=== PATIENT | male | born 1950 | race Caucasian/White ===

== ENCOUNTER 2017-09-16 07:41 | Emergency (ER) | payer MEDICARE, BC ==
--- NOTE | 2017-09-16 08:28 | EDM.PDOC ---
ED HPI GENERAL MEDICAL PROBLEM - General Chief Complaint: Genitourinary Problem Stated Complaint: BACK PAIN/PAINFUL URINATION Time Seen by Provider: 09/16/17 08:06 Source of Information: Reports: Patient, RN Notes Reviewed - History of Present Illness INITIAL COMMENTS - FREE TEXT/NARRATIVE: 67-year-old male comes in with voiding dysuria the first started about 3 days ago. He has had this occasion in the past but usually that will clear up within a day or so. The voiding dysuria has continued. Therefore he felt he should come in, get this checked out. No visible hematuria. No fever or chills. He did feel somewhat nauseated a few days ago but that now is better. He states he did not drink much water that day but now is been drinking what he feels is adequate water intake the past 2 days. No major abdominal pain. No chest pain or difficulty breathing. Bilateral Flank Pain Score (Numeric/FACES): 5 - Related Data Allergies Allergy/AdvReac Type Severity Reaction Status Date / Time No Known Allergies Allergy Verified 09/16/17 07:56 Home Meds: Home Meds Aspirin [Ecotrin] 81 mg PO DAILY 09/16/17 [History] Cholecalciferol (Vitamin D3) [Vitamin D3] 5,000 unit PO DAILY 09/16/17 [History] Clopidogrel [Plavix] 75 mg PO DAILY 09/16/17 [History] Cyanocobalamin/Folic Acid [Vitamin P50-Creno Acid] 400 mg PO DAILY 09/16/17 [ History] Isosorbide Mononitrate [Imdur] 30 mg PO BID 09/16/17 [History] Levofloxacin [Levaquin] 500 mg PO DAILY #7 tab 09/16/17 [Rx] Lisinopril 10 mg PO DAILY 09/16/17 [History] Metoprolol Tartrate 25 mg PO BID 09/16/17 [History] Nitroglycerin [Nitrostat] 0.4 mg PO ASDIRECTED PRN 09/16/17 [History] [place]-3/DHA/Epa/Fish Oil [[place]-3 Fish Oil 1,000 MG Sfgl] 1,000 mg PO DAILY 11/28 [History] Rosuvastatin [Crestor] 20 mg PO DAILY 09/16/17 [History] Ubidecarenone [Co Q-10] 300 mg PO DAILY 09/16/17 [History] Past Medical History HEENT History: Reports: Impaired Vision Other HEENT History: wears eyeglasses. Cardiovascular History: Reports: Bypass, High Cholesterol, Hypertension, ID, Stents Other Cardiovascular History: 3 vessel CABG Dermatologic History: Reports: Psoriasis - Infectious Disease History Infectious Disease History: Reports: Chicken Pox, Measles - Past Surgical History Cardiovascular Surgical History: Reports: Coronary Artery Bypass, Coronary Artery Stent Social & Family History - Tobacco Use Smoking Status *Q: Never Smoker Second Hand Smoke Exposure: No - Caffeine Use Caffeine Use: Reports: Coffee - Recreational Drug Use Recreational Drug Use: No ED ROS GENERAL - Review of Systems Review Of Systems: See Below Constitutional: Denies: Fever, Chills, Diaphoresis HEENT: Denies: Throat Pain Respiratory: Denies: Shortness of Breath Cardiovascular: Denies: Chest Pain GI/Abdominal: Reports: Nausea. Denies: Abdominal Pain, Diarrhea, Vomiting (3 days ago) : Reports: Dysuria. Denies: Hematuria Musculoskeletal: Reports: Back Pain (Low back discomfort the last several days) Skin: Reports: No Symptoms Neurological: Reports: No Symptoms ED EXAM, GI/ABD - Physical Exam Exam: See Below General Appearance: Alert, No Apparent Distress Throat/Mouth: Normal Inspection Head: No: Facial Swelling Neck: Supple, Full Range of Motion Respiratory/Chest: No Respiratory Distress, Lungs Clear, Normal Breath Sounds Cardiovascular: Tachycardia GI/Abdominal Exam: Soft, Non-Tender Back Exam: No: CVA Tenderness (L), CVA Tenderness (R), Paraspinal Tenderness, Vertebral Tenderness Extremities: Normal Inspection, Normal Range of Motion Neurological: Alert, Oriented, No Motor/Sensory Deficits Skin Exam: Warm, Dry, Normal Color Course - Vital Signs Last Recorded V/S: Last Vital Signs Temp 97.8 F 09/16/17 07:45 Pulse 109 H 09/16/17 07:45 Resp 16 09/16/17 07:45 BP 124/72 09/16/17 07:45 Pulse Ox 100 09/16/17 07:45 - Orders/Labs/Meds Orders: Active Orders 24 hr Category Date Time Status Peripheral IV Care [RC] . DIRECTED Care 09/16/17 09:17 Active CULTURE URINE [RM] Stat Lab 09/16/17 07:55 Received Sodium Chloride 0.9% [Saline Flush] Med 09/16/17 09:17 Active 10 ml FLUSH ASDIRECTED PRN Peripheral IV Insertion Adult [OM.PC] Stat Oth 09/16/17 09:17 Ordered Medication Orders Sodium Chloride (Saline Flush) 10 ml FLUSH ASDIRECTED PRN PRN Reason: Keep Vein Open Last Admin: 09/16/17 09:39 Dose: 10 ml Labs: Laboratory Tests 09/16/17 Range/Units 07:55 Urine Color Yellow (Yellow) Urine Appearance Slt cloudy H (Clear) Urine pH 6.0 (5.0-8.0) Ur Specific [place] > or = 1.030 (1.005-1.030) Urine Protein 2+ H (Negative) Urine Glucose (UA) Negative (Negative) Urine Ketones 1+ H (Negative) Urine Occult Blood 2+ H (Negative) Urine Nitrite Positive H (Negative) Urine Bilirubin Negative (Negative) Urine Urobilinogen 2.0 H (0.2-1.0) Ur Leukocyte Esterase Trace H (Negative) Urine RBC 10-20 H (0-5) /hpf Urine WBC 20-30 H (0-5) /hpf Ur Epithelial Cells 0-5 (0-5) /hpf Urine Bacteria Many H (FEW) /hpf Urine Mucus Many H (FEW) /hpf Meds: Medications Generic Name Dose Route Start Last Admin Trade Name Freq PRN Reason Stop Dose Admin Sodium Chloride 10 ml 09/16/17 09:17 09/16/17 09:39 Saline Flush FLUSH 10 ml ASDIRECTED PRN Administration Keep Vein Open Discontinued Medications Generic Name Dose Route Start Last Admin Trade Name Freq PRN Reason Stop Dose Admin Ceftriaxone Sodium 1 gm/ 100 mls @ 200 mls/hr 09/16/17 09:17 09/16/17 09:28 Sodium Chloride IV 09/16/17 09:46 200 mls/hr ONETIME ONE Administration Sodium Chloride 500 mls @ 999 mls/hr 09/16/17 09:17 09/16/17 09:27 Normal Saline IV 09/16/17 09:47 999 mls/hr .BOLUS ONE Administration Levofloxacin 500 mg 09/16/17 10:42 Levaquin PO 09/16/17 10:43 ONETIME ONE Departure - Departure Time of Disposition: 10:53 Disposition: Home, Self-Care 01 Condition: Fair Clinical Impression: UTI, Urinary tract infectious disease - Discharge Information Referrals: Keyur Long MD [Primary Care Provider] - Forms: ED Department Discharge Additional Instructions: Drink plenty of water to maintain hydration, you've been given Rocephin 1 g IV while here in the ED, Levaquin 500 milligrams daily to take with food as soon as you get home. Prescription for another 7 days has been sent to [facility]. Continue that once daily until gone. See Dr. Richi Chaney in 2-3 days for follow-up. Urine culture has been done. Urine culture results should be available in about 48 hours. Return to ED if symptoms worsening in any way. - My Orders Last 24 Hours: My Active Orders 09/16/17 07:55 CULTURE URINE [RM] Stat 09/16/17 09:17 Peripheral IV Care [RC] . DIRECTED Sodium Chloride 0.9% [Saline Flush] 10 ml FLUSH ASDIRECTED PRN Peripheral IV Insertion Adult [OM.PC] Stat - Assessment/Plan Last 24 Hours: My Active Orders 09/16/17 07:55 CULTURE URINE [RM] Stat 09/16/17 09:17 Peripheral IV Care [RC] . DIRECTED Sodium Chloride 0.9% [Saline Flush] 10 ml FLUSH ASDIRECTED PRN Peripheral IV Insertion Adult [OM.PC] Stat
[2017-09-16] MEDS ORDERED: Sodium Chloride 0.9% 500 ML IV ONE (09:17)
[2017-09-16] MEDS ORDERED: cefTRIAXone 1 GM in Sodium Chloride 0.9% 100 ML IV ONE (09:17)
[2017-09-16] MEDS ORDERED: Sodium Chloride 0.9% 10 ML Syringe FLUSH PRN (09:17)
[2017-09-16] MEDS ORDERED: Levofloxacin 250 MG Tab PO ONE ×2 (10:42→10:53)
== END 2017-09-16 11:49 | disposition home or self-care (01) ==
LOC: JD.ED 07:41
DX: N39.0 Urinary tract infection, site not specified (principal); B96.20 Unspecified Escherichia coli [E. coli] as the cause of diseases classified elsewhere; E78.00 Pure hypercholesterolemia, unspecified; I10 Essential (primary) hypertension; I25.2 Old myocardial infarction; Z79.82 Long term (current) use of aspirin; Z79.899 Other long term (current) drug therapy
CPT/HCPCS: 81001; 87086; 87088; 87186; 96361; 96365; 99283; A9270; J0696; J7030; J7040; J7050; 99284

== ENCOUNTER 2018-05-18 08:59 | Emergency (ER) | payer MEDICARE, BC ==
[2018-05-18] MEDS ORDERED: Amoxicillin/Clavulanate K 875-125 MG Tab PO ONE (09:48)
[2018-05-18] MEDS ORDERED: Diphtheria,Pertussis(Acell),Tetanus Vaccine 0.5 ML SDV IM ONE (09:49)
--- NOTE | 2018-05-18 09:55 | EDM.PDOC ---
ED HPI GENERAL MEDICAL PROBLEM - General Chief Complaint: Bite:Animal, Insect Stated Complaint: DOG BITE Time Seen by Provider: 05/18/18 09:09 Source of Information: Reports: Patient, RN Notes Reviewed History Limitations: Reports: No Limitations - History of Present Illness INITIAL COMMENTS - FREE TEXT/NARRATIVE: The patient states that he was attacked by 2 of his neighbors [place] dogs around 8:30 this morning, while he was walking to his garage. The patient was bitten on his left anterior thigh and right distal anterior leg. The patient states that he is otherwise uninjured. LLUSTRE animal Leotus, who is here with the patient, states that the dog's vaccinations are up-to-date. The patient is not sure if his own tetanus vaccination is up-to-date. The patient's PCP is Dr. Long. His German Professor is Dr. Delgado, in [place]. Left Leg Pain Score (Numeric/FACES): 4 - Related Data Allergies Allergy/AdvReac Type Severity Reaction Status Date / Time No Known Allergies Allergy Verified 05/18/18 09:05 Home Meds: Home Meds Aspirin [Ecotrin] 81 mg PO DAILY 09/16/17 [History] Cholecalciferol (Vitamin D3) [Vitamin D3] 5,000 unit PO DAILY 09/16/17 [History] Clopidogrel [Plavix] 75 mg PO DAILY 09/16/17 [History] Cyanocobalamin/Folic Acid [Vitamin C80-Gkvme Acid] 400 mg PO DAILY 09/16/17 [ History] Isosorbide Mononitrate [Imdur] 30 mg PO BID 09/16/17 [History] Lisinopril 10 mg PO DAILY 09/16/17 [History] Metoprolol Tartrate 25 mg PO BID 09/16/17 [History] Nitroglycerin [Nitrostat] 0.4 mg PO ASDIRECTED PRN 09/16/17 [History] [place]-3/DHA/Epa/Fish Oil [[place]-3 Fish Oil 1,000 MG Sfgl] 1,000 mg PO DAILY 11/28 [History] Rosuvastatin [Crestor] 20 mg PO DAILY 09/16/17 [History] Ubidecarenone [Co Q-10] 300 mg PO DAILY 09/16/17 [History] levoFLOXacin [Levaquin] 500 mg PO DAILY #7 tab 09/16/17 [Rx] Amoxicillin/Potassium Clav [Augmentin 875-125 Tablet] 1 tab PO Q12H #14 tablet 05/18/18 [Rx] Past Medical History HEENT History: Reports: Allergic Rhinitis, Impaired Vision Other HEENT History: wears eyeglasses. Cardiovascular History: Reports: CAD, High Cholesterol, Hypertension, ID (2011) - Infectious Disease History Infectious Disease History: Reports: Chicken Pox, Measles - Past Surgical History Cardiovascular Surgical History: Reports: Coronary Artery Bypass (x 3 vessel, 2011), Coronary Artery Stent (x 2) Social & Family History - Tobacco Use Smoking Status *Q: Never Smoker - Caffeine Use Caffeine Use: Reports: Coffee - Alcohol Use Alcohol Use History: Yes Days Per Week of Alcohol Use: 3 Number of Drinks Per Day: 2 Total Drinks Per Week: 6 Alcohol Use Frequency: Socially - Recreational Drug Use Recreational Drug Use: No - Living Situation & Occupation Living situation: Reports: , with Spouse Occupation: Retired ED ROS GENERAL - Review of Systems Review Of Systems: ROS reveals no pertinent complaints other than HPI. ED EXAM, ANIMAL BITE - Physical Exam Exam: See Below Exam Limited By: No Limitations General Appearance: Alert, WD/WN, No Apparent Distress Extremities: Other (There is a puncture wound with minimal skin tear to the mid- anterior left thigh, with associated hematoma, ecchymosis, and swelling. The wound is bleeding a small amount. There is a second puncture wound to the distal anterior right leg. This wound appears to be smaller and likely less deep , also without significant skin tear, and is associated with a smaller hematoma and no appreciable ecchymosis. Neurovascular status of both lower extremities is intact.) Course - Vital Signs Last Recorded V/S: Last Vital Signs Temp 36.3 C 05/18/18 09:05 Pulse 72 05/18/18 09:05 Resp 16 05/18/18 09:05 BP 173/93 H 05/18/18 09:05 Pulse Ox 98 05/18/18 09:05 - Orders/Labs/Meds Orders: Active Orders 24 hr Category Date Time Status Vaccines to be Administered [RC] PER UNIT ROUTINE Care 05/18/18 09:49 Ordered Amoxicillin/Clavulanate K [Augmentin 875 MG/125 MG] Med 05/18/18 09:48 Once 1 tab PO ONETIME ONE Diphth,Pertuss(Acell),Tet Vac [Adacel] Med 05/18/18 09:49 Once 0.5 ml IM .ONCE ONE Medication Orders Amoxicillin/Clavulanate Potassium (Augmentin 875 Mg/125 Mg) 1 tab PO ONETIME ONE Stop: 05/18/18 09:49 Meds: Medications Generic Name Dose Route Start Last Admin Trade Name Tierra PRN Reason Stop Dose Admin Amoxicillin/Clavulanate Potassium 1 tab 05/18/18 09:48 Augmentin 875 Mg/125 Mg PO 05/18/18 09:49 ONETIME ONE - Re-Assessments/Exams Free Text/Narrative Re-Assessment/Exam: 05/18/18 09:49 Recent guidelines with respect to the management of dog bites have shown more latitude, with some wounds being able to be sutured, and not necessarily requiring prolonged antibiotics, however, in this case, the patient's to wounds appear to be deep puncture wounds, not tears, therefore I believe suturing would be ill-advised, and I'm going to recommend a ten-day course of Augmentin, with follow-up in about a week to see if a longer course is necessary. I also advised the patient that despite taking Augmentin, it is possible that one or both of his wounds could become infected, and therefore if he has any concerns, he should either return to the ED or follow up with Dr. Long for evaluation. The patient will receive a tetanus vaccination in the ED today. Departure - Departure Time of Disposition: 09:51 Disposition: Home, Self-Care 01 Condition: Fair Clinical Impression: Dog bite of left thigh, Dog bite of right lower leg - Discharge Information *PRESCRIPTION DRUG MONITORING PROGRAM REVIEWED*: Not Applicable *COPY OF PRESCRIPTION DRUG MONITORING REPORT IN PATIENT DAVONTE: Not Applicable Referrals: Keyur Long MD [Primary Care Provider] - Additional Instructions: You were seen in the emergency room after being bitten by 2 dogs on your left thigh and right leg. Because both of your wounds appear to be deep puncture wounds, suturing was not recommended. Keep the wounds clean with ordinary soap and water. Pat dry, then apply a clean dressing, daily. Change the dressing if it becomes too bloody or dirty. Take [id number] ibuprofen, 2-3 tablets (400-600 mg) every 8 hours, with food, as needed for discomfort. You have been started on the antibiotic Augmentin. A prescription for Augmentin has been sent to the [facility], located in the [id number] [address]. Take one tablet every 12 hours, starting this evening, 05/18/2018, as prescribed. Finish the entire prescription unless told otherwise by Dr. Long. Follow-up with Dr. Long on or about 05/24/2018, to see if he would recommend a longer course of antibiotics. Despite being on antibiotics, it is possible that one or both of these wounds could get infected. If you develop inordinate pain, swelling, redness, drainage , or fever, please either return to the ER, or see Dr. Long, for reevaluation. - My Orders Last 24 Hours: My Active Orders 05/18/18 09:48 Amoxicillin/Clavulanate K [Augmentin 875 MG/125 MG] 1 tab PO ONETIME ONE 05/18/18 09:49 Vaccines to be Administered [RC] PER UNIT ROUTINE Diphth,Pertuss(Acell),Tet Vac [Adacel] 0.5 ml IM .ONCE ONE - Assessment/Plan Last 24 Hours: My Active Orders 05/18/18 09:48 Amoxicillin/Clavulanate K [Augmentin 875 MG/125 MG] 1 tab PO ONETIME ONE 05/18/18 09:49 Vaccines to be Administered [RC] PER UNIT ROUTINE Diphth,Pertuss(Acell),Tet Vac [Adacel] 0.5 ml IM .ONCE ONE
== END 2018-05-18 10:09 | disposition home or self-care (01) ==
LOC: JD.ED 08:59
DX: S71.152A Open bite, left thigh, initial encounter (principal); S81.851A Open bite, right lower leg, initial encounter; W54.0XXA Bitten by dog, initial encounter; I10 Essential (primary) hypertension; Z79.899 Other long term (current) drug therapy; Z79.82 Long term (current) use of aspirin
CPT/HCPCS: 90471; 90715; 99283; A9270

== ENCOUNTER 2019-04-23 14:37 | Emergency (ER) | payer MEDICARE, BC ==
[2019-04-23] MEDS ORDERED: Sodium Chloride 0.9% 1,000 ML IV ONE ×2 (15:00→18:34)
[2019-04-23] MEDS ORDERED: Ondansetron 4 MG/2 ML SDV IVPUSH ONE (15:01)
[2019-04-23] MEDS: Sodium Chloride 0.9% 10 ML Syringe FLUSH PRN ×2 (15:11→20:27)
[2019-04-23] MEDS ORDERED: Iopamidol 612 MG/ML 100 ML Bottle IVPUSH ONE (16:18)
[2019-04-23] MEDS ORDERED: Sodium Chloride 0.9% 10 ML Syringe FLUSH ONE (16:18)
[2019-04-23] MEDS ORDERED: Thrombin (Bovine) 5,000 Unit Kit ONE (16:22)
[2019-04-23] MEDS ORDERED: Lidocaine 1% with EPINEPHrine 1:100,000 20 ML MDV INJECT ONE (16:31)
[2019-04-23] MEDS ORDERED: Lidocaine 1% with EPINEPHrine 1:100,000 20 ML MDV ONE (16:31)
[2019-04-23] MEDS ORDERED: Diatrizoate Meglumine/Diatrizoate Sodium 37% 120 ML Bottle PO ONE (16:47)
[2019-04-23] MEDS ORDERED: LORazepam 2 MG/ML SDV IVPUSH ONE (17:34)
[2019-04-23] MEDS ORDERED: HYDROmorphone 0.5 MG/0.5 ML Syringe IVPUSH ONE (18:31)
--- NOTE | 2019-04-23 22:15 | EDM.PDOC ---
<Julia Ellison - Last Filed: 04/23/19 22:48> ED HPI GENERAL MEDICAL PROBLEM - General Chief Complaint: ENT Problem Stated Complaint: DENTAIL COMPLAINT, HEAVY BLEEDING AFTER TOOTH PULL Time Seen by Provider: 04/23/19 14:40 Source of Information: Reports: Patient History Limitations: Reports: No Limitations - History of Present Illness INITIAL COMMENTS - FREE TEXT/NARRATIVE: 69-year-old male presents for bleeding post tooth removal. Patient was seen by his dentist this morning around 05 12. He had his left lower wisdom tooth extracted. Reportedly was a difficult extraction and he had bleeding. Bleeding was able to be controlled on the dental office. He was sent home. He replied and presented back to the office. Again controlled with pressure was sent home. He then contacted stat dentist about rebleeding for the third time and was sent to us. Patient is on Plavix and baby aspirin for coronary artery stents in place. Patient reports pain to the left mandible. He also reports odynophagia. Primary care provider is Dr. Simental. Dentist is Dr. Gamino. Left Face/Facial Pain Score (Numeric/FACES): 10 - Related Data Allergies Allergy/AdvReac Type Severity Reaction Status Date / Time No Known Allergies Allergy Verified 04/23/19 14:45 Home Meds: Home Meds Aspirin [Ecotrin EC] 81 mg PO DAILY 09/16/17 [History] Cholecalciferol (Vitamin D3) [Vitamin D3] 5,000 unit PO DAILY 09/16/17 [History] Clopidogrel [Plavix] 75 mg PO DAILY 09/16/17 [History] Cyanocobalamin/Folic Acid [Vitamin W35-Flhrf Acid] 400 mg PO DAILY 09/16/17 [ History] Isosorbide Mononitrate [Imdur] 30 mg PO BID 09/16/17 [History] Lisinopril 10 mg PO DAILY 09/16/17 [History] Metoprolol Tartrate 25 mg PO BID 09/16/17 [History] Nitroglycerin [Nitrostat] 0.4 mg PO ASDIRECTED PRN 09/16/17 [History] Torrey-3/DHA/Epa/Fish Oil [Torrey-3 Fish Oil 1,000 MG Sfgl] 1,000 mg PO DAILY 11/28 [History] Rosuvastatin [Crestor] 20 mg PO DAILY 09/16/17 [History] Ubidecarenone [Co Q-10] 300 mg PO DAILY 09/16/17 [History] Clindamycin HCl 300 mg PO TID #30 capsule 04/23/19 [Rx] Past Medical History HEENT History: Reports: Allergic Rhinitis, Impaired Vision Other HEENT History: wears eyeglasses. Cardiovascular History: Reports: CAD, High Cholesterol, Hypertension, SC Other Cardiovascular History: 3 vessel CABG Respiratory History: Reports: None Gastrointestinal History: Reports: None Genitourinary History: Reports: None Musculoskeletal History: Reports: None Neurological History: Reports: None Psychiatric History: Reports: None Endocrine/Metabolic History: Reports: None Hematologic History: Reports: Anticoagulation Therapy Immunologic History: Reports: None Oncologic (Cancer) History: Reports: None Dermatologic History: Reports: Psoriasis - Infectious Disease History Infectious Disease History: Reports: Chicken Pox, Measles - Past Surgical History Head Surgeries/Procedures: Reports: None Cardiovascular Surgical History: Reports: Coronary Artery Bypass, Coronary Artery Stent Social & Family History - Tobacco Use Smoking Status *Q: Never Smoker - Caffeine Use Caffeine Use: Reports: Coffee - Recreational Drug Use Recreational Drug Use: No - Living Situation & Occupation Living situation: Reports: , with Spouse Occupation: Retired ED ROS ENT - Review of Systems Review Of Systems: See Below HEENT: Reports: Dental Pain (left lowerjaw, bleeding post wisdom tooth removal) , Other (reprots odynophagia) ED EXAM, ENT - Physical Exam Exam: See Below Exam Limited By: No Limitations General Appearance: Alert, WD/WN, No Apparent Distress Ears: Normal External Exam Nose: Normal Inspection Mouth/Throat: Normal Inspection, Other (bleeding and swelling to the left lower mandibula where #17 was present). No: Peritonsillar Mass, Uvular Deviation Respiratory/Chest: No Respiratory Distress, Lungs Clear, Normal Breath Sounds Cardiovascular: Normal Peripheral Pulses, Regular Rate, Rhythm, No Murmur Neurological: Alert, Oriented, Normal Cognition Psychiatric: Normal Affect, Normal Mood Skin: Warm, Dry, Normal Color Course - Vital Signs Last Recorded V/S: Last Vital Signs Temp 36.8 C 04/23/19 19:15 Pulse 95 04/23/19 14:42 Resp 16 04/23/19 14:42 BP 87/51 L 04/23/19 19:30 Pulse Ox 100 04/23/19 14:42 - Orders/Labs/Meds Orders: Active Orders 24 hr Category Date Time Status Peripheral IV Care [RC] . DIRECTED Care 04/23/19 15:01 Active Max Facial Sinus w Cont [CT] Stat Exams 04/23/19 15:03 Taken Sodium Chloride 0.9% [Saline Flush] Med 04/23/19 15:01 Active 10 ml FLUSH ASDIRECTED PRN Peripheral IV Insertion Adult [OM.PC] Routine Oth 04/23/19 15:00 Ordered Medication Orders Sodium Chloride (Saline Flush) 10 ml FLUSH ASDIRECTED PRN PRN Reason: Keep Vein Open Last Admin: 04/23/19 20:27 Dose: 10 ml Admin: 04/23/19 15:11 Dose: 10 ml Labs: Laboratory Tests 04/23/19 04/23/19 04/23/19 Range/Units 15:05 15:05 15:05 WBC 14.47 H (4.23-9.07) K/mm3 RBC 4.69 (4.63-6.08) M/mm3 Hgb 14.7 (13.7-17.5) gm/L Hct 42.5 (40.1-51.0) % MCV 90.6 (79.0-92.2) fl MCH 31.3 (25.7-32.2) pg MCHC 34.6 (32.2-35.5) g/dl RDW Std Deviation 40.8 (35.1-43.9) fL Plt Count 178 (163-337) K/mm3 MPV 10.6 (9.4-12.3) fl Neut % (Auto) 86.9 H (34.0-67.9) % Lymph % (Auto) 4.6 L (21.8-53.1) % Bryan % (Auto) 7.3 (5.3-12.2) % Eos % (Auto) 0.8 (0.8-7.0) Baso % (Auto) 0.2 (0.1-1.2) % Neut # (Auto) 12.56 H (1.78-5.38) K/mm3 Lymph # (Auto) 0.67 L (1.32-3.57) K/mm3 Bryan # (Auto) 1.06 H (0.30-0.82) K/mm3 Eos # (Auto) 0.12 (0.04-0.54) K/mm3 Baso # (Auto) 0.03 (0.01-0.08) K/mm3 Manual Slide Review Abnormal smear PT 10.5 (9.7-12.0) SECONDS INR 0.96 APTT 22 (22-31) SECONDS Creatinine 1.1 (0.7-1.3) mg/dL Est Cr Clr Drug Dosing 60.93 mL/min Estimated GFR (MDRD) > 60 (>60) mL/min C-Reactive Protein (<1.0) mg/dL 04/23/19 04/24/19 04/24/19 Range/Units 19:00 05:10 05:10 WBC 6.44 (4.23-9.07) K/mm3 RBC 3.80 L (4.63-6.08) M/mm3 Hgb 13.1 L D 11.9 L (13.7-17.5) gm/L Hct 38.3 L 35.3 L (40.1-51.0) % MCV 92.9 H (79.0-92.2) fl MCH 31.3 (25.7-32.2) pg MCHC 33.7 (32.2-35.5) g/dl RDW Std Deviation 41.5 (35.1-43.9) fL Plt Count 142 L (163-337) K/mm3 MPV 11.0 (9.4-12.3) fl Neut % (Auto) 73.8 H (34.0-67.9) % Lymph % (Auto) 12.0 L (21.8-53.1) % Bryan % (Auto) 12.1 (5.3-12.2) % Eos % (Auto) 1.7 (0.8-7.0) Baso % (Auto) 0.2 (0.1-1.2) % Neut # (Auto) 4.76 (1.78-5.38) K/mm3 Lymph # (Auto) 0.77 L (1.32-3.57) K/mm3 Bryan # (Auto) 0.78 (0.30-0.82) K/mm3 Eos # (Auto) 0.11 (0.04-0.54) K/mm3 Baso # (Auto) 0.01 (0.01-0.08) K/mm3 Manual Slide Review PT (9.7-12.0) SECONDS INR APTT (22-31) SECONDS Creatinine (0.7-1.3) mg/dL Est Cr Clr Drug Dosing mL/min Estimated GFR (MDRD) (>60) mL/min C-Reactive Protein 4.1 H* (<1.0) mg/dL Meds: Medications Generic Name Dose Route Start Last Admin Trade Name Freq PRN Reason Stop Dose Admin Sodium Chloride 10 ml 04/23/19 15:01 04/23/19 20:27 Saline Flush FLUSH 10 ml ASDIRECTED PRN Administration Keep Vein Open Discontinued Medications Generic Name Dose Route Start Last Admin Trade Name Freq PRN Reason Stop Dose Admin Diatrizoate Meglum/Diatrizoate Sod 90 ml 04/23/19 16:47 Gastrografin 37% PO 04/23/19 16:48 ONETIME ONE Hydromorphone HCl 0.5 mg 04/23/19 18:31 04/23/19 19:05 Dilaudid IVPUSH 04/23/19 18:32 0.5 mg ONETIME ONE Administration Sodium Chloride 1,000 mls @ 999 mls/hr 04/23/19 15:00 04/23/19 15:18 Normal Saline IV 04/23/19 16:00 999 mls/hr ONETIME ONE Administration Sodium Chloride 1,000 mls @ 150 mls/hr 04/23/19 18:34 04/23/19 19:03 Normal Saline IV 04/24/19 01:13 150 mls/hr ONETIME ONE Administration Clindamycin Phosphate 900 mg/ 106 mls @ 200 mls/hr 04/23/19 22:17 04/23/19 23 :14 Sodium Chloride IV 04/23/19 22:48 Not Given ONETIME ONE Clindamycin Phosphate 900 mg/ 50 mls @ 100 mls/hr 04/23/19 22:46 04/23/19 23: 06 Premix IV 04/23/19 23:15 100 mls/hr ONETIME ONE Administration Iopamidol 80 ml 04/23/19 16:18 04/23/19 20:27 Isovue-300 (61%) IVPUSH 04/23/19 16:19 80 ml ONETIME ONE Administration Lidocaine/Epinephrine 20 ml 04/23/19 16:31 04/23/19 16:35 Xylocaine 1% With Epinephrine 1:100,000 INJECT 04/23/19 16:32 20 ml ONETIME ONE Administration Lidocaine/Epinephrine Confirm 04/23/19 16:31 04/23/19 16:49 Xylocaine 1% With Epinephrine 1:100,000 Administered 04/23/19 16:32 Not Given Dose 20 ml .ROUTE .STK-MED ONE Lorazepam 0.5 mg 04/23/19 17:34 04/23/19 18:07 Ativan IVPUSH 04/23/19 17:35 0.5 mg ONETIME ONE Administration Ondansetron HCl 4 mg 04/23/19 15:01 04/23/19 15:12 Zofran IVPUSH 04/23/19 15:02 4 mg ONETIME ONE Administration Sodium Chloride 10 ml 04/23/19 16:18 Saline Flush FLUSH 04/23/19 16:19 ONETIME ONE Thrombin Confirm 04/23/19 16:22 04/23/19 16:39 Thrombin-Jmi Administered 04/23/19 16:23 Not Given Dose 5,000 unit .ROUTE .STK-MED ONE Tranexamic Acid 1,000 mg 04/23/19 16:31 04/23/19 16:40 Cyklokapron IVPUSH 04/23/19 16:32 1,000 mg ONETIME ONE Administration Tranexamic Acid 1,000 mg 04/23/19 18:00 04/23/19 18:05 Cyklokapron IVPUSH 04/23/19 18:01 1,000 mg ONETIME ONE Administration - Radiology Interpretation Free Text/Narrative:: CT of the max face with contrast impression per vrad: status post removal of a left mandibular molar toot. extensive inflammation of the left perimandibular soft tissue consistent with cellulitis. air in the soft tissues with probable developing perimandibular abscess noted on the left . The abscess measures approximately 2cm. Air noted in the base of the oral cavity on te left with probable developing abscess measuring approximately 2. cm. - Re-Assessments/Exams Free Text/Narrative Re-Assessment/Exam: 04/23/19 23:09 Patient initially presented to the ER he had only minimal bleeding. Due to significant swelling to the left wisdom tooth area a CT was ordered as well as labs. After his stay in the ER for approximately an hour and a half, nursing staff called he was bleeding extensively. I was with another patient. presents to the bedside and attempted to control the bleeding by placing TXA soaked gauze to the area. He had utilized 1000 mg of TXA to the area. Applied this for about 15 minutes. This did not resolve the bleeding. He attempted to put a suture in there but this was unsuccessful. He did apply lidocaine with epinephrine to the area for pain control as well as to help stop the bleeding. Bleeding controlled with pressure. His bleeding was then minimal. There is an staff then again notified us that he had restarted bleeding he was to be taken to CT at approximately 1730. CT not preformed at that time. I then put 500 mg of TXA on a gauze and applied it directly to the socket. This was held for approximately 15 minutes. It was then removed. Bleeding was minimal after that. He has not bled since this is been removed at around 1845. Contacted dentist, Dr. Gamino at [phone]. States he's removed several of patient's teeth before even when he has been on Plavix without any problem. Contacted Dr. Stapleton, oromaxillary facial surgeon [employer] technician [employer] with [facility]. He recommended applying bone wax to the area and then suturing Surgicel with a [id number] suture to the area. He felt this would likely controlled the bleeding. We were to get the CT done which shows possible abscess and cellulitis. This was discussed with Dr. Acevedo about that this more likely the bleeding. I did not get any history from the patient about an infected tooth. His stated that he was prescribed amoxicillin today but he has not yet started this. They are very anxious about going home due to his several recurrences of bleeding. While he was in the ER he rebleed about 2 or 3 times losing approximately 100 to 150 mils each time. Case was discussed with Dr. Acevedo. Plan will be we will monitor him here in the ER. He is sleeping at this time. He has not bled since around 1830. We will give him some IV clindamycin. He has slept on some ice chips without any recurrence of his bleeding. We will discharge her from the emergency room in the morning if he does well overnight.I will not attempt to dislodge the clot at this time since he is doing so well. May consider bone wax, surgacell and suture if rebleeding occurs. Will recheck CBC and CRP in the morning. Will plan to d/c on clindamycin. Departure - Departure Disposition: Home, Self-Care 01 Clinical Impression: Postprocedural hemorrhage due to complication of oral surgery - Discharge Information Prescriptions: Clindamycin HCl 300 mg PO TID #30 capsule Referrals: Keyur Long MD [Primary Care Provider] - Forms: ED Department Discharge Additional Instructions: clindamycin 1 cap tid x 10 days. take with food. Recommend a probiotic. take your pain medication you have been prescribed as needed. recommend ice chips, small sips of ice water as tolerated. advance to soft foods over the next few days as tolerated. Clear fluid diet preferably cold in nature. Almost any fluids would suffice. Suggest nutrition by way of milk shake , ice cream, yogurt, pudding this a soft diet for the next 3 days and then resume regular diet. I would suspect scrambled eggs would be okay tomorrow. Stay away from anything rough such as toast etc. until the clot is well formed. He can make it past another 48 hours is very unlikely that the site would rebleed. hold your plavix x 2 days if you had your stents place over one year ago. if placed within the last year resume your plavix daily. follow-up with our dentist this week for a recheck. Please return to the ER should your symptom change or worsen. <Venu Acevedo - Last Filed: 04/24/19 07:48> Course - Re-Assessments/Exams Free Text/Narrative Re-Assessment/Exam: 04/24/19 04:11 so far the patient been sleeping and no sign of any active or recurrent bleeding from his dental extraction site. 04/24/19 07:00: On my examination this morning he has marked ecchymoses of his uvula soft palate hard palate on the left side in his left buccal mucosa which extends downwards towards his anterior neck. He has slight trouble swallowing. There is no active bleeding from the extraction site of the murmur on the left lower mandible. He was therefore be given a clear fluid diet. He will follow clear fluid diet for the next 3 days such as ice cream milkshakes yogurt Jell-O etc. Denies grandmother legs tomorrow. Of course she will return if there is any further active bleeding. Plan will be to discharge him in the care of his at 0800 hrs. this morning as she is due to arrive at that time. Departure - Departure Time of Disposition: 07:45 Condition: Fair - Discharge Information *PRESCRIPTION DRUG MONITORING PROGRAM REVIEWED*: Not Applicable *COPY OF PRESCRIPTION DRUG MONITORING REPORT IN PATIENT DAVONTE: Not Applicable
[2019-04-23] MEDS ORDERED: Clindamycin Phosphate 900 MG in Sodium Chloride 0.9% 100 ML IV ONE (22:17)
[2019-04-23] MEDS ORDERED: Clindamycin Phosphate in D5W 900 MG in Premix Bag 1 BAG IV ONE ×2 (22:46)
--- NOTE | 2019-04-28 06:39 | CT ---
CT facial bones Technique: Multiple axial sections through the facial structures were obtained. Intravenous contrast was utilized. Findings: Soft tissue air is noted within the left side of the face adjacent to the left mandible with associated soft tissue swelling. No drainable abscess is seen at this time. Submandibular and parotid salivary glands are within normal limits. Mild areas of mucosal thickening are seen inferiorly within the maxillary sinuses which appear to be chronic. There is slight fracturing seen within the tooth socket around the posterior left molar from recent extraction. Air and soft tissue swelling are also noted within the left parapharyngeal region causing slight mass effect upon the adjacent oral cavity to the right side. Impression: 1. Recent posterior molar extraction on the left side causing slight fracturing of the tooth socket. Soft tissue air is noted lateral to the mandible at this level as well as diffuse soft tissue density adjacent to this mandible. Findings may represent inflammation from the surgery versus infection or even developing early non-drainable abscess. 2. Soft tissue swelling and air within the left parapharyngeal region causing mass effect and shifting of the adjacent oral airway to the right side. Additional area of infection is possible. 3. Paranasal sinus findings which appear chronic and are believed to be incidental. Diagnostic code #3 I agree with preliminary report from [facility], finalized on 04/23/19, 11:01 PM Central Time
== END 2019-04-24 09:05 | disposition home or self-care (01) ==
LOC: JD.ED 14:37
DX: K91.840 Postprocedural hemorrhage of a digestive system organ or structure following a digestive system procedure (principal); E78.00 Pure hypercholesterolemia, unspecified; I25.10 Atherosclerotic heart disease of native coronary artery without angina pectoris; I25.2 Old myocardial infarction; Z79.01 Long term (current) use of anticoagulants; Z79.82 Long term (current) use of aspirin; Z79.02 Long term (current) use of antithrombotics/antiplatelets; Z79.899 Other long term (current) drug therapy
CPT/HCPCS: 36415; 70487; 82565; 85014; 85018; 85025; 85610; 85730; 86140; 96361; 96365; 96375; 96376; 99284; J1170; J2060; J2405; J3490; J7040; Q9963; Q9967

== ENCOUNTER 2023-12-25 08:27 | Day surgery (SDC) | payer BC, MEDICARE ==
[~2023-12-25 08:27] MED LIST: Lidocaine 1% 5 ML VIAL ONE; Midazolam 1 MG/ML 2 ML SDV ONE; Propofol 200 MG/20 ML SDV ONE; Sodium Chloride 0.9% 10 ML Syringe FLUSH PRN; Sodium Chloride 0.9% 10 ML Syringe FLUSH SCH; fentaNYL 100 MCG/2 ML SDV ONE
[2023-12-25] MEDS ORDERED: ceFAZolin 2 GM Vial ONE (08:33)
[2023-12-25] MEDS ORDERED: Ondansetron 4 MG/2 ML SDV ONE (09:01)
[2023-12-25] MEDS: Lactated Ringers 1,000 ML IV SCH (09:20)
[2023-12-25] MEDS ORDERED: fentaNYL 100 MCG/2 ML SDV IVPUSH PRN (09:24)
[2023-12-25] MEDS ORDERED: HYDROmorphone 0.5 MG/0.5 ML Syringe IVPUSH PRN (09:24)
[2023-12-25] MEDS ORDERED: Ondansetron 4 MG/2 ML SDV IVPUSH PRN (09:24)
[2023-12-25] MEDS ORDERED: ePHEDrine 50 MG/ML SDV ONE (09:29)
[2023-12-25] MEDS: EPINEPHrine 1 MG/ML SDV ONE (10:06)
[2023-12-25] MEDS: Bupivacaine 0.5% 30 ML SDV ONE (10:06)
[2023-12-25] MEDS: oxyCODONE 5 MG Tab PO SCH (12:06)
== END 2023-12-25 12:52 | disposition home or self-care (01) ==
LOC: JD.SDS 08:27
PROVIDERS: ATTEND Surgery
DX: K40.90 Unilateral inguinal hernia, without obstruction or gangrene, not specified as recurrent (principal); I10 Essential (primary) hypertension; E78.00 Pure hypercholesterolemia, unspecified; I25.10 Atherosclerotic heart disease of native coronary artery without angina pectoris; Z95.1 Presence of aortocoronary bypass graft; Z79.02 Long term (current) use of antithrombotics/antiplatelets; Z79.899 Other long term (current) drug therapy
CPT/HCPCS: 49505; 87641; A9270; C1781; J0171; J0665; J0690; J2250; J2405; J2704; J3010; J7120; J3490